=== PATIENT | male | born 1990 | race Caucasian/White ===

== ENCOUNTER 2017-07-19 12:52 | Emergency (ER) | payer SELFPAY ==
[2017-07-19] MEDS ORDERED: Lidocaine 1% w/Epinephrine 1:100K 20 ML VIAL ONE (13:04)
[2017-07-19] MEDS ORDERED: Bupivacaine 0.25% 10 ML VIAL ONE (13:04)
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
== END 2017-07-19 17:34 | disposition home or self-care (01) ==
LOC: ERS 12:52
DX: S71.102A Unspecified open wound, left thigh, initial encounter (principal); F41.9 Anxiety disorder, unspecified; W32.0XXA Accidental handgun discharge, initial encounter
CPT/HCPCS: 96374; G0390; J2001; J2270; S0020